=== PATIENT | female | born 2000 | race Caucasian/White ===

== ENCOUNTER 2023-03-10 12:08 | Outpatient (REF) | payer MEDICAID, SELFPAY ==
[2023-03-10 13:55] LABS: Estimated Average Glucose 94 mg/dL; Hemoglobin A1c % 4.9 % (<6.0)
[2023-03-10 14:25] LABS: Anion Gap 11 (12-20); Blood Urea Nitrogen 12 mg/dL (9-16); Calcium 9.7 mg/dL (8.4-10.2); Carbon Dioxide 25 mmol/L (22-29); Chloride 105 mmol/L (96-108); Estimated Glomerular Filt Rate > 60; Glucose Random 99 mg/dL (60-115); Potassium 4.4 mmol/L (3.3-5.1); Sodium 137 mmol/L (135-145)
== END 2023-03-10 12:09 | disposition home or self-care (01) ==
LOC: HO.HHCL 12:08
PROVIDERS: Visit Provider Internal Medicine Geriatric Medicine
DX: E66.01 Morbid (severe) obesity due to excess calories (principal); L91.0 Hypertrophic scar; Z13.1 Encounter for screening for diabetes mellitus
CPT/HCPCS: 36415; 80048; 83036

== ENCOUNTER 2024-02-05 13:23 | Outpatient (REF) | payer MEDICAID, SELFPAY ==
[2024-02-05 15:29] LABS: CT PCR NOT DETECTED (Not Detect.); NG PCR NOT DETECTED (Not Detect.)
== END 2024-02-05 13:24 | disposition home or self-care (01) ==
LOC: HO.HHCLNP 13:23
PROVIDERS: Visit Provider Advanced Practice Midwife
DX: Z11.3 Encounter for screening for infections with a predominantly sexual mode of transmission (principal)
CPT/HCPCS: 36415; 87491; 87591; 88175

== ENCOUNTER 2024-04-02 10:33 | Outpatient (REF) | payer MEDICAID, SELFPAY ==
[2024-04-02 11:50] LABS: MANUAL DIFF FLAG NO
[2024-04-02 12:08] LABS: Basophils Percent Auto 0.3 % (0-2); Eosinophils Absolute Auto 0.1 X10*3/uL (0.0-0.4); Eosinophils Percent Auto 0.6 % (0-4); Hematocrit 37.3 % (37.0-47.0); Hemoglobin 12.2 g/dl (12.0-16.0); Imm Gran Abs Auto 0.04 X10*3/uL (0.00-0.03); Imm Gran Pct Auto 0.4 % (0.0-0.4); Lymphocytes Absolute Auto 2.5 X10*3/uL (1.2-4.9); Lymphocytes Percent Auto 24.3 % (20-40); Mean Corpuscular HGB Conc 32.7 g/dl (31.0-35.0); Mean Corpuscular Hemoglobin 26.1 pg (27.0-33.0); Mean Corpuscular Volume 79.9 fL (80.0-98.0); Mean Platelet Volume 11.2 fL (9.4-12.3); Monocytes Absolute Auto 0.5 X10*3/uL (0.1-1.2); Monocytes Percent Auto 4.7 % (2-11); Neutrophils Absolute Auto 7.2 x10*3/uL (2.0-8.3); Neutrophils Percent Auto 69.7 % (45-73); Platelet Count 336 X10*3/uL (160-400); Red Blood Count 4.67 X10*6/uL (4.20-5.50); Red Cell Distribution Width 14.1 % (11.0-16.0); White Blood Count 10.4 X10*3/uL (4.8-10.8)
[2024-04-02 12:32] LABS: Alanine Aminotransferase 31 U/L (0-31); Albumin Level 4.1 g/dL (3.5-5.0); Alkaline Phosphatase 60 U/L (39-117); Anion Gap 11 (12-20); Aspartate Amino Transferase 23 U/L (5-31); Bilirubin Total 0.5 mg/dL (0.0-1.0); Blood Urea Nitrogen 14 mg/dL (9-16); Calcium 9.6 mg/dL (8.4-10.2); Carbon Dioxide 20 mmol/L (22-29); Chloride 109 mmol/L (96-108); Cholesterol 103 mg/dL (<200); Estimated Glomerular Filt Rate > 60; Glucose Random 117 mg/dL (60-115); HDL Cholesterol 35 mg/dL (>40); Iron 39 mcg/dL (30-160); LDL Cholesterol Calculated 61 mg/dL (<100); Percent Iron Saturation 13 % (15-50); Potassium 3.9 mmol/L (3.3-5.1); Sodium 136 mmol/L (135-145); Total Iron Binding Capacity 300 mcg/dL (228-428); Total Protein 8.2 g/dL (6.5-8.0); Triglycerides 38 mg/dL (<150); Unsaturated Iron Binding 261 ug/dL
[2024-04-02 12:44] LABS: HBc Num1 0.18 S/CO (0.00-0.79); Hepatitis B Core Antibody Nonreactive (Nonreactive); Hepatitis B Surface Antigen Negative (Negative); ~Hepatitis B Surface Antibody NONREACTIVE (Nonreactive)
[2024-04-02 13:32] LABS: CT PCR NOT DETECTED (Not Detect.); NG PCR NOT DETECTED (Not Detect.)
[2024-04-02 19:53] LABS: Ferritin 23 ng/mL (10-122); TSH reflex Free T4 1.04 uIU/mL (0.32-4.0)
[2024-04-03 09:12] LABS: Estimated Average Glucose 100 mg/dL; Hemoglobin A1c % 5.1 % (<6.0)
[2024-04-05 08:23] LABS: HIV AB/AG Nonreactive (Nonreactive); HIV Num 1 0.33 S/CO (0.00-0.99); ~HepC Num1 0.17 S/CO (0.00-0.79); ~Hepatitis C Antibody Nonreactive (Nonreactive)
[2024-04-05 08:56] LABS: Syphilis Screen Nonreactive (Nonreactive)
[2024-04-05 19:23] LABS: Rubella IgG Antibody 1.16 Index
[2024-04-05 22:28] LABS: TS Negative Control Passed; TS Panel A 0; TS Panel B 0; TS Positive Control Passed; TSpotTB Negative (Negative)
[2024-04-06 06:48] LABS: Varicella IgG Antibody <1.00 S/CO
== END 2024-04-02 10:34 | disposition home or self-care (01) ==
LOC: HO.HHCL 10:33
PROVIDERS: Referring Provider Student in an Organized Health Care Education/Training Program; Visit Provider Internal Medicine Geriatric Medicine
DX: Z00.00 Encounter for general adult medical examination without abnormal findings (principal); Z23 Encounter for immunization; J45.20 Mild intermittent asthma, uncomplicated; Z11.1 Encounter for screening for respiratory tuberculosis
CPT/HCPCS: 36415; 80053; 80061; 82306; 82728; 83036; 83540; 84443; 85025; 85027; 86481; 86704; 86706; 86735; 86762; 86765; 86780; 86787; 86803; 87340; 87389; 87491; 87591

== ENCOUNTER 2025-03-02 10:40 | Outpatient (REF) | payer MEDICAID, SELFPAY ==
[2025-03-02 11:20] LABS: MANUAL DIFF FLAG NO
--- OUTSIDE RECORDS SUMMARY | 2025-03-02 11:30 | XMS_ITS | Encounter Summary ---
Author Organization [employer] Address [address] [facility] 7 [place] [address] Care Team Providers Care Senior Staff Consultant Name Role Phone Name, Casey DAVIS Primary Care Provider [phone] Reason for Visit * Reason Onset Date Comments Call Back Request 06/06/2023 Encounter Details Date Type Department Care Team ([facility] st Contact Info) Description 06/06/2023 Telephone [facility] MEDICINE [address] [place] [address] Name, MD Casey [address] [place] [address] Call Back Request Social History Tobacco Use Types Packs/Day Years Used Date Smoking Tobacco: Never Smokeless Tobacco: Never Alcohol Use Standard Drinks/Week Comments Never 0 (1 standard drink = 0.6 oz pur e alcohol) Depression Answer Date Recorded Patient Health Questionnaire-9 Score 0 03/10/2023 Housing Stability Answer Date Recorded What is your housing situation today? I have deidra queen 05/07/[address] you li ve. Do you have problems with any of the following? None of the above 05/07/2023 Food Insecurity Answer Date Recorded Within the past 12 months, y ou worried that your food would run out before you got money to buy more: Never True 05/07/2023 Within the past 12 months,th e food you bought just didn't last and you didn't have enough money to get more: Never True Transportation Answer Date Recorded In the past 12 months, has l ack of transportation kept you from medical appts, meetings, work or from getting things needed for daily living? No 05/07/2023 Utilities Answer Date Recorded In the past 12 months, has t he electric, gas, oil or water company threatened to shut off services in your home? No 05/07/2023 Depression Answer Date Recorded Patient Health Questionnaire-2 Score 0 03/10/2023 Comments Unknown Sex and Gender Information Value Date Recorded Sex Assigned at Female 05/20/2022 10:40 AM EDT Legal Sex Female 10:40 AM EDT Gender Identity Female 05/20/2022 10:40 AM EDT Sexual Orientation Straight 05/20/2022 10 :40 AM EDT Travel History Travel Start Travel End [place] 01/29/2025 03/01/2025 documented as of this encounter Miscellaneous Notes * Telephone Encounter - Jessica Casillas RN - 06/06/2023 9:39 AM EST T/C x 1 am to [phone] for below message, no answer , LVM to call back on [phone]. * Telephone Encounter - Aye Manrique - 06/06/2023 8:54 AM EST Tc from pt request to speak directly with provider in regards to rash and wrist pain. Pt did decline to be triaged. Please contact pt at [phone] documented in this encounter Plan of Treatment Not on file documented as of this encounter Visit Diagnoses Not on filedocumented in this encounter Additional Health Concerns Assessment Noted Time PHQ-9 Depression Total Score: 0 03/10/20 23 11:49 AM EDT documented as of this encounter Care Teams Senior Staff Consultant Relationship Specialty Start Date End Date Name, MD Casey [address] [place] [address] PCP - General Family Medicine 03/08/22 documented as of this encounter
--- OUTSIDE RECORDS SUMMARY | 2025-03-02 11:31 | XMS_ITS | Clinical Summary ---
Author Organization [facility] Address [address] [place] [address] Care Team Providers Care Twister Frame Tender Name Role Phone Mitzi oClvin [facility] Primary Care Provider [phone] Source Comments PLEASE NOTE, if this patient is a minor, it may be UNLAWFUL to discuss sensitive information that is contained in these records (such as FAMILY PLANNING, MENTAL HEALTH or SUBSTANCE ABUSE) with the minor patient's parent or other person without the patient's specific authorization.[facility] Allergies Active Allergy Reactions Criticality Noted Date Comments Bee Sting Swelling 05/16/2016 Medications pediatric multivitamin chewable tabletIndications :Encounter for routine child health examination without abnormal findings Place 1 Tab into mouth, chew and swallow once daily. 90 Tab 3 6 Active melatonin 3 mg tabletIndications :Encounter for routine child health examination without abnormal findings Take 1 Tab by mouth nightly at bedtime as needed for sleep. 90 Tab 3 6 Active EPINEPHrine (EPIPEN) 0.3 mg/0.3 mL injectionIndicati ons:Bee sting allergy Inject 0.3 mL into the muscle as needed for anaphylaxis. 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 Immunizations Immunization Administration Dates Next Due DTAP (DAPTACEL),5 PERTUSSIS ANTIGENS 04/2007,08/01/2003,05/18/2003,03/04 HEP B, PED/ADOL (ZAXFINW-B-GMYG/RECOMBIVAX-PEDS) 11/04/2003,02/27/2003,01/27/2003 HPV 9 (Gardasil) 05/02/2016 HPV, QUADRIVALENT 09/21/2015,06/10/2014 Hep A, Ped/adol, 2 Dose 05/16/2016 Hib (PRP-T) 02/29/2004, 4,05/18/2003,03/04 INFLUENZA, SEASONAL, INJECTABLE 05/16/2016,06/10,05/12/2007 IPV (IPOL) 01/27/2007, 4,11/06/2003,05/18 MENINGOCOCCAL MCV4P (MENACTRA) 06/10/2014 MMR (MMR II/Priorix) 01/27/2007,02/29/2004 PNEUMOCOCCAL CONJUGATE PCV 7 11/04/2003,08/01/19 04,05/18/2003 TDAP 06/10/2014 Varicella (Varivax), Live Vaccine 05/12/2007, Social History Tobacco Use Types Packs/Day Years Used Date Smoking Tobacco: Never Alcohol Use Standard Drinks/Week Comments Not Asked 0 (1 standard drink = 0.6 oz pur e alcohol) Social Connections Answer Date Recorded Social Connections and Isolation 0 03/14/2019 Financial Resource Strain Answer Date R ecorded Financial Resource Strain 0 2018 Stress Answer Date Recorded Stress 0 03/14/2019 Physical Activity Answer Date Recorded Physical Activity 0 03/14/2019 Food Insecurity Answer Date Recorded Food 0 03/14/2019 Transportation Needs Answer Date Record ed Transportation 0 03/14/2019 Housing Stability Answer Date Recorded Housing 0 03/14/2019 Safety and Environment Answer Date Javi rded Safety 0 03/14/2019 Utilities Answer Date Recorded Utilities 0 03/14/2019 Employment Answer Date Recorded Employment 0 03/14/2019 Comments No Sex and Gender Information Value Date Recorded Sex Assigned at Not on file Legal Sex Female 7:20 AM PST Gender Identity Not on file Sexual Orientation Not on file Last Filed Vital Signs Vital Sign Reading Time Taken Comments Blood Pressure 100/70 05/16/2016 3:24 PM EDT Pulse 94 05/16/2016 3:24 PM EDT Temperature 37.1 C (98.7 F) 05/16/2016 3:24 PM EDT Respiratory Rate 20 05/16/2016 3:24 PM EDT Oxygen Saturation - - Inhaled Oxygen Concentration - - Weight 86.2 kg (190 lb) 05/16/2016 3:24 PM EDT Height 158.8 cm (5' 2.5 ) 05/16/2016 3:24 PM EDT Body Mass Index 34.2 05/16/2016 3:24 PM EDT Plan of Treatment Not on file Goals Goal Patient Goal Type Associated Problems Recent Progress Patient-Stated? Author Eat more fruits and vegetables Diet On track( 3:18 PM PST) No Priti Lares RD Reduce portion size Diet Not on track( 3:18 PM PST) No Priti Lares RD Increase physical activity Exercise On track( 3:18 PM PST) No Priti Lares RD Insurance [facility] Care Teams Twister Frame Tender Relationship Specialty Start Date End Date Mitzi Colvin FNP [address] [place] [address] PCP - General Family Medicine, [employer]PER[employer] 01/09/15
--- OUTSIDE RECORDS SUMMARY | 2025-03-02 11:31 | XMS_ITS | Clinical Summary ---
Author Organization [facility] Address [address] [place] [address] Care Team Providers Care Manager Of Purchasing Name Role Phone Name, Casey DAVIS Primary Care Provider [phone] Social History Tobacco Use Types Packs/Day Years Used Date Smoking Tobacco: Never Smokeless Tobacco: Never Alcohol Use Standard Drinks/Week Comments Never 0 (1 standard drink = 0.6 oz pur e alcohol) Comments Unknown Sex and Gender Information Value Date Recorded Sex Assigned at Not on file Legal Sex Female 12:40 PM EST Gender Identity Not on file Sexual Orientation Not on file Obstetrics History Last Filed Vital Signs Vital Sign Reading Time Taken Comments Blood Pressure 122/84 04/24/2023 10:45 AM EDT Pulse 81 04/24/2023 10:45 AM EDT Temperature - - Respiratory Rate - - Oxygen Saturation - - Inhaled Oxygen Concentration - - Weight 129 kg (285 lb) 09/25/2023 3:25 PM EST Height 162.6 cm (5' 4 ) 04/24/2023 10:45 AM EDT Body Mass Index 48.92 04/24/2023 10:45 AM EDT Plan of Treatment Health Maintenance Due Date Last Done Comments Gonorrhea/Chlamydia Screening 2002 HPV Vaccines (1 - 3-dose series) 2017 Meningococcal B Vaccine (1 o f 2 - Standard) 2018 DTaP,Tdap,and Td Vaccines (1 - Tdap) 2021 Hepatitis B Vaccines (1 of 3 - 19+ 3-dose series) 2021 HIV Screening 06/18/2022 Hepatitis C Screening 06/18/2022 Social Influencers of Health Screening 06/18/2022 Cervical Cancer Screening: P ap Smear 12/29/2023 COVID-19 Vaccine (1 - 2023-2 5 season) 2024 Depression Screening 07/21/2024 Influenza Vaccine (#1) 2025 HIB Vaccines Aged Out No longer eligi ble based on patient's age to complete this topic Hepatitis A Vaccines Aged Out No long er eligible based on patient's age to complete this topic IPV Vaccines Aged Out No longer eligi ble based on patient's age to complete this topic MMR Vaccines Aged Out No longer eligi ble based on patient's age to complete this topic Meningococcal ACWY Vaccine Aged Out N o longer eligible based on patient's age to complete this topic Pneumococcal Vaccine: Pediat rics (0 to 5 Years) and At-Risk Patients (6 to 49 Years) Aged Out No longer eligible b ased on patient's age to complete this topic RSV Immunization Patients Un alexandra 20 months Aged Out No longer eligible b ased on patient's age to complete this topic Varicella Vaccines Aged Out No longer eligible based on patient's age to complete this topic Care Teams Manager Of Purchasing Relationship Specialty Start Date End Date Name, MD Casey [address] [place], [place] PCP - General 09/10/22
[2025-03-02 11:34] LABS: Hematocrit 39.5 % (37.0-47.0); Hemoglobin 12.6 g/dl (12.0-16.0); Imm Gran Abs Auto 0.02 X10*3/uL (0.00-0.03); Imm Gran Pct Auto 0.2 % (0.0-0.4); Lymphocytes Absolute Auto 2.7 X10*3/uL (1.2-4.9); Mean Corpuscular HGB Conc 31.9 g/dl (31.0-35.0); Mean Corpuscular Hemoglobin 26.8 pg (27.0-33.0); Mean Corpuscular Volume 84.0 fL (80.0-98.0); NRBC Abs Auto 0.000 X10*3/uL (0.0-0.012); NRBC Pct Auto 0.0 /100WBC (0.0-0.2); Platelet Count 265 X10*3/uL (160-400); Red Blood Count 4.70 X10*6/uL (4.20-5.50); White Blood Count 8.6 X10*3/uL (4.8-10.8)
[2025-03-02 12:15] LABS: Alanine Aminotransferase 34 U/L (0-31); Albumin Level 4.4 g/dL (3.5-5.0); Alkaline Phosphatase 58 U/L (39-117); Anion Gap 11 (12-20); Aspartate Amino Transferase 29 U/L (5-31); Blood Urea Nitrogen 16 mg/dL (9-16); Calcium 9.2 mg/dL (8.4-10.2); Carbon Dioxide 26 mmol/L (22-29); Chloride 109 mmol/L (96-108); Cholesterol 93 mg/dL (<200); Estimated Glomerular Filt Rate > 60; HDL Cholesterol 34 mg/dL (>40); Potassium 4.0 mmol/L (3.3-5.1); Sodium 142 mmol/L (135-145); Total Protein 7.6 g/dL (6.5-8.0); Triglycerides 36 mg/dL (<150)
[2025-03-02 12:17] LABS: Hemoglobin A1C 101.0134 umol/L; Total Hemoglobin (HGBA1C) 3249.8096 umol/L
== END 2025-03-02 10:41 | disposition home or self-care (01) ==
LOC: HO.HHCL 10:40
PROVIDERS: PCP Internal Medicine Geriatric Medicine; Visit Provider Internal Medicine Geriatric Medicine
DX: N92.6 Irregular menstruation, unspecified (principal); E66.01 Morbid (severe) obesity due to excess calories
CPT/HCPCS: 36415; 80053; 80061; 83036; 84443; 85025